=== PATIENT | female | born 1995 | race Caucasian/White ===

== ENCOUNTER 2018-10-02 20:02 | Emergency (ER) | payer SELFPAY ==
[~2018-10-02] VITALS: Ht 160 cm; Wt 90.0 kg
[2018-10-02 21:57] LABS: HCG,QUANTITATIVE 1 mIU/mL (0-6)
[2018-10-02 22:54] VITALS: BP 125/71
== END 2018-10-02 23:21 | disposition home or self-care (01) ==
LOC: EMS 20:15
DX: F10.129 Alcohol abuse with intoxication, unspecified (principal); Y90.8 Blood alcohol level of 240 mg/100 ml or more
CPT/HCPCS: 36415; 84702; 99283; G0480